=== PATIENT | male | born 1965 | race Caucasian/White ===

== ENCOUNTER 2022-09-04 14:46 | Inpatient (IN) | payer SELFPAY ==
[2022-09-04] MEDS ORDERED: Sodium Chloride 0.9% 10 ML Syringe FLUSH PRN (14:49)
[2022-09-04] MEDS ORDERED: Sodium Chloride 0.9% 1,000 ML IV SCH (15:00)
[2022-09-04] MEDS ORDERED: Iopamidol 755 Mg/ML 100 ML Bottle IV ONE (15:08)
[2022-09-04] MEDS ORDERED: Sodium Chloride 0.9% 50 ML IV SCH (15:15)
[2022-09-04] MEDS: cefTRIAXone 2 GM Vial IVPUSH SCH (16:04)
[2022-09-04] MEDS: Sodium Chloride 0.9% 1,000 ML IV SCH (16:04)
[2022-09-04] MEDS: Acetaminophen 325 MG Tab PO PRN (17:57)
[2022-09-04 18:22] LABS: ANION GAP 10.8 mmol/L (5-15)
[2022-09-04] MEDS ORDERED: Ibuprofen 400 MG Tab PO PRN (21:52)
[2022-09-05] MEDS: Acetaminophen 325 MG Tab PO PRN ×3 (00:28→12:05)
[2022-09-05 00:36] LABS: ANION GAP 10.4 mmol/L (5-15)
[2022-09-05 00:55] LABS: CORONAVIRUS COVID-19 NAA NEGATIVE (NEGATIVE)
[2022-09-05 00:56] LABS: RESPIRATORY SYNCYTIAL VIR NAA NEGATIVE (NEGATIVE)
[2022-09-05] MEDS: Sodium Chloride 0.9% 1,000 ML IV SCH (01:38)
[2022-09-05 08:12] LABS: ANION GAP 11.5 mmol/L (5-15)
[2022-09-05] MEDS: cefTRIAXone 2 GM Vial IVPUSH SCH (16:15)
[2022-09-05 16:54] LABS: ANION GAP 8.5 mmol/L (5-15)
== END 2022-09-05 18:40 | disposition home or self-care (01) | DRG 866 ==
LOC: KA.MS 14:46
PROVIDERS: ADMIT Student in an Organized Health Care Education/Training Program; ATTEND Student in an Organized Health Care Education/Training Program
DX: B34.9 Viral infection, unspecified (principal); E87.1 Hypo-osmolality and hyponatremia; R18.8 Other ascites; J90 Pleural effusion, not elsewhere classified; Z20.822 Contact with and (suspected) exposure to COVID-19; K82.8 Other specified diseases of gallbladder; R50.9 Fever, unspecified; R79.89 Other specified abnormal findings of blood chemistry; Z79.82 Long term (current) use of aspirin; Z79.899 Other long term (current) drug therapy; Z90.49 Acquired absence of other specified parts of digestive tract; Z98.890 Other specified postprocedural states; Z87.891 Personal history of nicotine dependence
CPT/HCPCS: 0241U; 36415; 71260; 74177; 80048; 80053; 83605; 83735; 85025; A9270-GY; J0696; J3490; J7030; Q9967